=== PATIENT | male | born 1950 | race African-American/Black ===

== ENCOUNTER 2017-12-20 21:02 | Emergency (ER) | payer MEDICARE ==
[~2017-12-20] VITALS: Ht 182.9 cm; Wt 86.0 kg
[2017-12-21] MEDS ORDERED: IBUPROFEN 600MG TABLET PO ONE (01:30)
[2017-12-21] MEDS ORDERED: KETOROLAC 30MG/ML VIAL IM ONE (02:00)
[2017-12-21 02:04] VITALS: BP 151/80
== END 2017-12-21 02:53 | disposition home or self-care (01) ==
LOC: ER 21:52
DX: M54.5 Low back pain (principal); F32.9 Major depressive disorder, single episode, unspecified; G10 Huntington's disease
CPT/HCPCS: 99283; J1885